=== PATIENT | male | born 1950 | race Caucasian/White ===

== ENCOUNTER → 2020-12-29 13:39 | Outpatient (CLI) | payer MEDICARE, OTHER, SELFPAY ==
--- NOTE | 2020-12-29 | DI.RAD.S_ITS ---
PROCEDURE: XR LUMBAR SPINE 2-3V INDICATIONS: LOW BACK PAIN/PSORIATIC ARTHRITIS TECHNIQUE: 3 views of the lumbar spine were acquired. COMPARISON: None. FINDINGS: Bones: 5 [id number] vertebrae are present. Loss of normal lumbar lordosis. Mild kyphosis at L1-L2. Mild grade 1 retrolisthesis of L2 on L3. Multilevel disc space narrowing and endplate osteophyte formation throughout the lumbar and lower thoracic spine. Facet hypertrophy throughout the lumbar spine is present.. No vertebral body compression fractures. No suspicious bony lesions. Soft tissues: Overlying bowel gas pattern is normal. No suspicious soft tissue calcifications. IMPRESSION: Multilevel degenerative disc and facet disease. No acute fracture. No osseous lesion. If symptoms and/or clinical suspicion for pathology persist, further assessment with repeat, or advanced imaging (e.g., CT, MRI, or bone scan) may be helpful for further assessment. Dictated by: Derek Barrientos M.D. on 12/29/2020 at 15:13 Approved by: Derek Barrientos M.D. on 12/29/2020 at 15:14
--- NOTE | 2020-12-29 | DI.MRI.S_ITS ---
PROCEDURE: MR SHOULDER RT WO CON INDICATIONS: Unspecified injury of muscle(s) and tendon(s) TECHNIQUE: Noncontrast oblique coronal T2 fast spin echo with fat saturation, oblique sagittal T1 spin echo and T2 fast spin echo with fat saturation, axial T1 spin echo and T2 fast spin echo with fat saturation through the shoulder. COMPARISON: [facility], MR, SHOULDER WITHOUT CONTRAST, 02/04/2015, 14:22. FINDINGS: Rotator cuff: Massive full-thickness tear involving the subscapularis, supraspinatus and infraspinatus tendons. Teres minor tendon appears intact. Severe atrophy of the subscapularis supraspinatus and infraspinatus muscles. There is also atrophy of the mid anterior deltoid muscle fibers. Bones and bursae: No bone marrow contusions or fractures. Severe acromioclavicular joint degeneration. Full-thickness glenohumeral chondral loss. Acromion demonstrates conventional anatomy, without an os acromiale. Moderate joint effusion Capsule and soft tissues: Labrum: Circumferential blunted appearance of the labrum, likely chronic/degenerative. Glenohumeral ligaments: Inferior and superior glenohumeral ligaments are intact. Biceps tendon: Long head of the biceps tendon intact. Rotator interval: Partial obliteration of the subcoracoid fat signal intensity. Coracohumeral ligament: Intact. IMPRESSION: Full-thickness rotator cuff tear as above. Severe atrophy of the subscapularis, supraspinatus and infraspinatus muscles. Severe osteoarthritis, with full-thickness chondral loss. Moderate joint effusion Circumferential blunted tear of the labrum, likely chronic/degenerative. Dictated by: Rashid Reyes M.D. on 12/29/2020 at 14:24 Approved by: Rashdi Reyes M.D. on 12/29/2020 at 14:30
== END ==
PROVIDERS: Referring Provider Physician Assistant Medical; Visit Provider Physician Assistant Medical
DX: S46.011A Strain of muscle(s) and tendon(s) of the rotator cuff of right shoulder, initial encounter (principal); S43.491A Other sprain of right shoulder joint, initial encounter; M19.011 Primary osteoarthritis, right shoulder; M25.411 Effusion, right shoulder; M54.5 Low back pain; M51.36 Other intervertebral disc degeneration, lumbar region; L40.50 Arthropathic psoriasis, unspecified; G89.29 Other chronic pain; X58.XXXA Exposure to other specified factors, initial encounter
CPT/HCPCS: 72100; 73221

== ENCOUNTER → 2021-07-01 13:53 | Outpatient (CLI) | payer MEDICARE, OTHER, SELFPAY ==
--- NOTE | 2021-07-01 | DI.MRI.S_ITS ---
PROCEDURE: MR HAND LT WO/W CON INDICATIONS: TENOSYNOVITIS OF LEFT HAND TECHNIQUE: Noncontrast coronal T1 spin echo and T2 fast spin echo with fat saturation, axial proton density fast spin echo and T2 fast spin echo with fat saturation, axial T1 spin echo with fat saturation, sagittal T1 spin echo and STIR through the hand and fingers. Post-contrast axial, coronal, and sagittal T1 spin echo through the hand and fingers. COMPARISON: [facility], MR, MR HAND LEFT WITHOUT CONTRAST, 09/13/2017, 15:00. [facility] [place] [facility], CR, XR WRIST 3+ VIEWS LEFT, 05/19/2021, 14:45. FINDINGS: Image quality: Excellent. Bones: The metacarpal bones and phalanges are normally aligned without marrow edema or fracture. No suspicious intraosseous lesion. Osteoarthritic changes are noted throughout right hand and wrist joints. 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 Widening of scapholunate interval is again seen consistent with chronic rupture of scapholunate ligament. There is dorsal tilt of lunate in relation to distal scaphoid unchanged from prior study. Interphalangeal joint(s): The accessory and proper collateral ligaments appear intact. The volar plate demonstrates normal morphology. The extensor central slips appear intact on sagittal images. Metacarpophalangeal joint(s): Thickened ulnar collateral ligament of 3rd MCP joint is seen with mild surrounding soft tissue edema. There is also a small adjacent ganglion cyst measures 6 x 3 mm in size. Rest of the accessory and proper collateral ligaments appear intact, as well as the volar plate and adjacent deep transverse metacarpal ligaments. The sagittal bands of the extensor alvarez appear normal. Extensor apparatus: The central slips insert normally on the middle phalangeal base. The conjoint and terminal tendons insert normally on the distal phalangeal bases. More proximal portions of the extensor tendons also appear normal. Flexor apparatus: There is marked fluid distention involving flexor tendon sheath of left hand at the level of distal forearm/proximal wrist joints extending to the level of 1st distal phalangeal base and distal shaft of 2nd through 5th metacarpal bones. No enhancing soft tissue mass is noted. Thickened synovium with enhancement of synovial lining surrounding flexor tendons is seen. No flexor tendon rupture. Soft tissues: Visualized muscles demonstrate normal bulk and internal signal. No intramuscular masses identified. IMPRESSION: 1. Moderate osteoarthritic changes throughout left hand and wrist joints as described above. No definite bony erosive changes are seen. No fracture or dislocation. 2. 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 Chronic widening of scapholunate interval suggestive of ruptured scapholunate ligament. There is dorsal tilt of lunate in relation to distal capitate suggestive of dorsal intercalated segment instability. 3. Large amount of fluid distending tendon sheath of flexor tendons from visualized distal forearm extending to volar aspect of 1st distal phalangeal base and distal shaft of 2nd through 5th metacarpal bones. There is mild thickening of the flexor tendons synovium with synovial enhancement consistent with severe tenosynovitis . 4. Suggestion of sprain/low-grade partial-thickness tear involving ulnar collateral ligaments of 3rd MCP joint with adjacent tiny 6 x 3 mm ganglion cyst. 5. Extensor tendons are grossly intact. Dictated by: Margarito Boswell M.D. on 07/01/2021 at 16:32 Approved by: Margarito Boswell M.D. on 07/01/2021 at 16:43
== END ==
PROVIDERS: PCP Family Medicine; Referring Provider Orthopaedic Surgery; Visit Provider Orthopaedic Surgery
DX: M65.9 Synovitis and tenosynovitis, unspecified (principal); M67.442 Ganglion, left hand; S62.002S Unspecified fracture of navicular [scaphoid] bone of left wrist, sequela
CPT/HCPCS: 73220